=== PATIENT | female | born 2005 | race Hispanic/Latino ===

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

== ENCOUNTER 2024-01-31 18:28 | Observation (INO) | payer SELFPAY ==
[~2024-01-31] VITALS: Ht 152.4 cm; Wt 75.5 kg
--- NOTE | 2024-01-31 18:59 | ERN ---
General Chief Complaint: Abnormal Labs Stated Complaint: ABN LABS Time Seen by MD: 18:32 Time Seen by Midlevel: 18:32 Source: patient History of Present Illness Initial Comments This is a 18-year-old female presenting to the emergency department for evaluation of abnormal labs. Patient was called by her primary care doctor (Dr. Choi) today after she was found to have a hemoglobin of 6.3. She initially presented to her primary care doctors yesterday to discuss her irregular/heavy menstrual flow. She states that throughout her life she has had irregular periods that usually lasted around 5-7 days. She always had a normal amount of vaginal bleeding however, at the started this year she has been having an increase in vaginal bleeding. She has been having periods that are longer induration and heavier in flow. This was the reason she presented to her doctor yesterday. They performed blood work and did not get the results until today. In the emergency department she states she has not had any vaginal bleeding for the last four days. She states she finished her menstrual cycle on January 27, 2024. She specifically denies any dizziness, syncope, palpitations, chest pain, or any other symptoms at this time. Allergies: Coded Allergies: No Known Allergies (Unverified Allergy, Unknown, 07/18/20) Past Medical History Past Medical History: No Pertinent History Past Surgical History: None ROS Dictation CONSTITUTIONAL: Negative except for HPI HEAD/FACE: Negative except for HPI EENT: Negative except for HPI RESPIRATORY: Negative except for HPI GASTROINTESTINAL/ABDOMINAL: Negative except for HPI GENITOURINARY: Negative except for HPI MUSCULOSKELETAL: Negative except for HPI INTEGUMENTARY: Negative except for HPI NEUROLOGICAL/PSYCH: Negative except for HPI HEMATOLOGIC/LYMPHATIC: Negative except for HPI All Systems Negative, Except as noted above. 13 point review of systems assessed and all negative except for above. Physical Exam Physical Exam Dictation Vital Signs reviewed General Appearance: Alert, oriented x 3, no acute distress, well developed, nourished. Head and Face: non-traumatic. Eyes: PERRL, pink conjunctivas, eyelid no trauma, anterior chamber with arcus senilis. Ears: Pinnas intact and no signs of trauma or erythema ear canals clear and no discharge TM no erythema Nose: No discharge, no bleeding. Oropharynx: Mouth normal, tongue pink, pharynx clear,no erythema, tonsils no exudates, no abscesses noted, mucous membrane moist Neck: Supple, non-tender, no thyromegaly, no masses, no JVD, no bruits Breast:Deferred Chest:No tenderness, no crepitus, no paradoxical movement, no retractions Lungs:Clear, well-ventilated, symmetric, no rales, no wheezing, no rhonchi, no stridor, good breath sounds bilaterally Heart: Regular rate, regular rhythm, no murmur, no gallops Vascular: no peripheral edema, Abdomen: Soft, positive bowel sounds, nondistended, no guarding, nontender, no rebound, no masses no hepatomegaly, no splenomegaly, no Mireles's sign, no hernias. Rectal: Deferred Genital: Deferred Neurological: Normal speech, motor function intact, sensory function intact Musculoskeletal: Neck nontender, full range of motion, back nontender, full range of motion, Extremities: nontender, full range of motion Skin: Color pink, dry, no turgor, no rash, no lacerations, no abrasions, no contusions. Lymphatic: Deferred Results Laboratory and Microbiology Lab and Micro Result Laboratory Tests Test 01/31/24 19:04 01/31/24 20:03 White Blood Count 6.3 K/uL (4.8-10.8) Red Blood Count 3.07 MIL/uL (4.00-5.50) L Hemoglobin 6.2 g/dL (12.0-16.0) *L Hematocrit 22.5 % (36-48) L Mean Corpuscular Volume 73.3 fL (80-100) L Mean Corpuscular Hemoglobin 20.2 pg (27.0-33.0) L Mean Corpuscular Hemoglobin Concent 27.6 g/dL (32.0-36.0) L Red Cell Distribution Width 16.9 % (11.0-15.5) H Platelet Count 363 K/uL (130-400) Mean Platelet Volume 9.9 fL (7.5-10.5) Immature Granulocyte % (Auto) 1.4 % (0-1) H Neutrophils (%) (Auto) 57.2 % (40.0-77.0) Lymphocytes (%) (Auto) 25.1 % (21.0-51.0) Monocytes (%) (Auto) 13.3 % (3.0-13.0) H Eosinophils (%) (Auto) 2.1 % (0.0-8.0) Basophils (%) (Auto) 0.9 % (0.0-5.0) Neutrophils # (Auto) 3.6 K/uL (1.8-7.7) Lymphocytes # (Auto) 1.6 K/uL (1.0-4.8) Monocytes # (Auto) 0.8 K/uL (0.1-1.0) Eosinophils # (Auto) 0.13 K/uL (0.00-0.70) Basophils # (Auto) 0.06 K/uL (0.00-0.20) Absolute Immature Granulocyte (auto 0.09 K/uL (0-1) Nucleated Red Blood Cells 0.0 % (0.0-0.19) Red Blood Cell Morphology See comments Prothrombin Time 10.7 SEC (9.6-11.6) Prothromb Time International Ratio 0.99 (0.85-1.15) Activated Partial Thromboplast Time 23.5 SEC (26.3-35.5) L Sodium Level 144 mmol/L (136-145) Potassium Level 4.3 mmol/L (3.5-5.1) Chloride Level 108 mmol/L (101-111) Carbon Dioxide Level 29 mmol/L (21-32) Blood Urea Nitrogen 11 mg/dL (7-18) Creatinine 0.5 mg/dL (0.5-1.0) Glomerular Filtration Rate Calc 138 mL/min (>90) Random Glucose 89 mg/dL (70-105) Total Calcium 9.0 mg/dL (8.5-10.1) Serum Test, Qualitative NEGATIVE (NEGATIVE) Urine Color LIGHT-YELLOW (YELLOW) Urine Appearance CLEAR (CLEAR) Urine pH 6.5 (5.0-8.0) Urine Specific [place] 1.018 (1.001-1.031) Urine Protein NEGATIVE mg/dL (NEGATIVE) Urine Glucose (UA) NEGATIVE mg/dL (NEGATIVE) Urine Ketones 20 mg/dL (NEGATIVE) H Urine Occult Blood NEGATIVE (NEGATIVE) Urine Nitrate NEGATIVE (NEGATIVE) Urine Bilirubin NEGATIVE mg/dL (NEGATIVE) Urine Urobilinogen 0.2 mg/dL (0.2-1.0) Urine Leukocyte Esterase 75 Carlyn/uL (NEGATIVE) H Urine RBC 0-1 /HPF (0-1) Urine WBC 6-10 /HPF (0-1) H Urine Squamous Epithelial Cells RARE /HPF (0-2) Urine Bacteria None /HPF (None Seen) Labs Reviewed?: Yes MDM MDM: Differential diagnosis: Severe anemia, electrolyte abnormality, lab error Rationale: Tests considered and ordered secondary to shared decision making include: Previous outside records reviewed: Old ER visits. Risk of complication and/or morbidity or mortality of patient management: None Medications-Per medication reconciliation Need for hospitalization: Patient does meet criteria for hospitalization. Need for emergency major/minor surgery: No There are no social concerns with this patient. Prescription drug management Prescriptions will include symptomatic care Patient's prior external medical records from other ER visits were reviewed by me as indicated. Prior testing and results from previous visits were reviewed. Prior tests were taken into account with medical decision making and resource utilization, independent historian/historians were used to obtain complete medical history. I independently interpreted the test that were performed, results were reviewed by me and considered findings on radiology if ordered. Medical management and examination interpretation discussions were had by me with other qualified healthcare professionals as indicated for the patient's care. ED Course Orders Procedure Category Date Status Time Cbc With Differential LAB 01/31/24 Complete 18:36 Basic Metabolic Panel LAB 01/31/24 Complete 18:36 Pt And Ptt LAB 01/31/24 Complete 18:36 Type And Screen BBK 01/31/24 In Process 18:36 Testing, LAB 01/31/24 Complete Serum Hcg 18:36 Urinalysis Profile LAB 01/31/24 Complete 18:36 Rbc-No Active Bleeding BBK 01/31/24 In Process 19:49 Culture Urine JUAN MANUEL 01/31/24 In Process 20:15 Vital Signs Date Time Temp Pulse Resp B/P (MAP) Pulse Ox O2 Delivery O2 Flow Rate FiO2 01/31/24 21:18 98.6 83 20 110/66 100 Room Air* 0 01/31/24 20:13 98.8 70 20 100/66 100 Room Air* 0 01/31/24 19:04 98.8 74 20 90/50 100 Room Air* 0 01/31/24 18:32 98.2 97 18 128/56 98 DX & DISP Disposition: Inpatient Decision to Admit Date: Jan 31, 2024 Decision to Admit Time: 21:27 Departure Impression: Primary Impression: Anemia requiring transfusions Condition: Stable Referrals: SELF,REFERRAL (PCP) I have reviewed the case, and I agree with, Diagnosis and Plan I performed the substantive portion of the visit. I have reviewed and personally made and approve the management plan that is documented in the note by myself or the BRIDGER. I acknowledge for responsibility for the patient's management plan. CELE SMITH Jan 31, 2024 18:59
[2024-01-31 19:22] LABS: CREATININE 0.5 mg/dL (0.5-1.0); POTASSIUM 4.3 mmol/L (3.5-5.1)
[2024-01-31 19:26] LABS: BASOPHILS # (AUTO) 0.06 K/uL (0.00-0.20); BASOPHILS % (AUTO) 0.9 % (0.0-5.0); EOSINOPHILS # (AUTO) 0.13 K/uL (0.00-0.70); EOSINOPHILS % (AUTO) 2.1 % (0.0-8.0); HEMATOCRIT 22.5 % (36-48); IMMATURE GRANULOCYTE ABSOLUTE 0.09 K/uL (0-1); LYMPHOCYTES # (AUTO) 1.6 K/uL (1.0-4.8); LYMPHOCYTES % (AUTO) 25.1 % (21.0-51.0); MEAN CORPUSCULAR HEMOGLOBIN 20.2 pg (27.0-33.0); MEAN CORPUSCULAR HGB CONC 27.6 g/dL (32.0-36.0); MEAN CORPUSCULAR VOLUME 73.3 fL (80-100); MONOCYTES # (AUTO) 0.8 K/uL (0.1-1.0); MONOCYTES % (AUTO) 13.3 % (3.0-13.0); NEUTROPHILS # (AUTO) 3.6 K/uL (1.8-7.7); NEUTROPHILS % (AUTO) 57.2 % (40.0-77.0); PLATELET COUNT (AUTO) 363 K/uL (130-400); RED BLOOD CELL COUNT(AUTO) 3.07 MIL/uL (4.00-5.50); RED CELL DISTRIBUTION WIDTH 16.9 % (11.0-15.5); WHITE BLOOD COUNT (AUTO) 6.3 K/uL (4.8-10.8)
[2024-01-31 19:40] LABS: INR 0.99 (0.85-1.15); PROTHROMBIN TIME 10.7 SEC (9.6-11.6)
[2024-01-31 19:42] LABS: PARTIAL THROMBOPLASTIN TIME 23.5 SEC (26.3-35.5)
[2024-01-31 20:14] LABS: ADD UA MICROSCOPIC YES; APPEARANCE,URINE CLEAR (CLEAR); BILIRUBIN,URINE NEGATIVE (NEGATIVE); COLOR,URINE LIGHT-YELLOW (YELLOW); GLUCOSE, URINE (UA) NEGATIVE (NEGATIVE); KETONES,URINE 20 mg/dL (NEGATIVE); LEUKOCYTE ESTERASE ,URINE 75 Leu/uL (NEGATIVE); NITRATE,URINE NEGATIVE (NEGATIVE); OCCULT BLOOD,URINE NEGATIVE (NEGATIVE); PH,URINE 6.5 (5.0-8.0); PROTEIN,URINE NEGATIVE (NEGATIVE); UROBILINOGEN,URINE 0.2 mg/dL (0.2-1.0)
[2024-01-31 20:17] LABS: MUCUS,URINE RARE LPF (None Seen); RBC,URINE 0-1 /HPF (0-1); SQUAMOUS EPITHELIAL CELL,UR RARE /HPF (0-2)
--- NOTE | 2024-01-31 21:10 | NUR ---
BLOOD TRANSFUSION BEDGAN
[2024-01-31] MEDS ORDERED: ondanSETRON 4MG INJ IV PRN (22:00)
[2024-01-31] MEDS ORDERED: acetaMINOPHEN 325 MG TAB PO PRN ×2 (22:00)
--- NOTE | 2024-01-31 22:13 | HP ---
[facility] HISTORY AND PHYSICAL Date of Service: Jan 31, 2024 Time of Service: 21:53 PCP: Jimbo Maradiaga HISTORY OF PRESENT ILLNESS: This is a 18 year old female with no pertinent medical and surgical history who presents to the ED for evaluation of abnormal labs.As per patient she received a call from her PCP office today and that she has a hemoglobin of 6.3.Patient states she has been having a heavy menstrual flow since June which lasted between 10 to 17 days.Her last menstrual period was last January 10 2024 until D and so far this is the heaviest and longest .Patient went to her PCP yesterday and did some labs and she got the result today.Patient states she uses 6 pads everyday during her period.Patient reports she has an upcoming appointment with women health clinic tomorrow. Seen and examined patient in the Ed awake,alert and coherent,pale looking. Patient is currently receiving blood transfusion. Patient denies dizziness,fainting spell,weakness,chest pain,palpitation and shortness of breath. Latest vital signs temperature 98.4, heart rate 79, blood pressure 102/69 saturation 100% room air. Labs: Hemoglobin 6.2, hematocrit 22, platelet count 363. Chemistry normal. Serum test negative. ER called and recommended to admit the patient. REVIEW OF SYSTEMS CONSTITUTIONAL: Denies fevers, chills, or night sweats. No unintentional weight loss reported. NEUROLOGICAL: Denies headache, amaurosis fugax, motor weakness, sensory de ficit, vertigo/spinning sensation, gait abnormalities, or tremors. ENT: No hearing loss, otalgia, otorrhea, rhinitis, rhinorrhea, hoarseness, or sore throat. CARDIOVASCULAR: Denies any exertional angina, dyspnea on exertion, orthopnea, paroxysmal nocturnal dyspnea, palpitations, life-threatening arrhythmias, claudication. PULMONARY: Denies any shortness of breath, cough, phlegm/sputum, hemoptysis, pleuritic chest pain. SLEEP: Denies morning headaches, daytime somnolence or napping. Denies difficulty falling asleep, staying asleep, waking from sleep. Denies knowledge of snoring. GASTROINTESTINAL: Denies any type of dysphagia to either liquids or solids. Denies nausea, vomiting, pyrosis, early satiety, abdominal pain, diarrhea, constipation, or changes in stool consistency or caliber. Denies coffee-ground emesis, hematemesis, hematochezia, or melanotic stools. GENITOURINARY: Denies frequency, urgency, nocturia, hematuria or incontinence (Storage/Irritative symptoms.) Low urinary stream, straining to void, urinary intermittency or hesitancy, splitting of the voiding stream, terminal dribbling. ENDOCRINOLOGIC: Denies polyuria, polydipsia, polyphagia or heat/cold intolerances. HEMATOLOGIC: Denies thrombophilia/previous clots, or coagulopathy/bleeding disorders. ONCOLOGIC: Denies personal history of malignancy. DERMATOLOGIC: Denies rashes or pruritus. PSYCHIATRIC: Denies any suicidal or homicidal ideation. Denies hallucinations. PAST MEDICAL HISTORY: [ Patient denies ] PAST SURGICAL HISTORY: [Patient denies ] PAST SOCIAL HISTORY: [ Patient lives with mother. Patient admits to smoking marijuana occasionally last use was two weeks ago Patient denies cigarette, alcohol and recreational drug use. ] FAMILY HISTORY: [ Noncontributory POA] Coded Allergies: No Known Allergies (Unverified Allergy, Unknown, 07/18/20) PHYSICAL EXAM GENERAL APPEARANCE: The patient is awake, alert, and oriented, in no acute cardiopulmonary distress. NEUROLOGICAL: Cranial nerves II-XII grossly intact. Motor is 5/5 in bilateral upper and lower extremities proximal to distal. No sensory deficits. HEENT: Face is symmetric. Pupils are equal and reactive. Extraocular movements are intact. NECK: Supple. No JVD. No thyromegaly. No submental, submandibular, pre- /postauricular, occipital or supraclavicular lymphadenopathy. CHEST: Normal chest expansion. No Telemetry. LUNGS: Absence of any rales, rhonchi or any wheezing. CARDIOVASCULAR: Regular. S1 and S2 normal. No appreciable rubs, murmurs or gallops. ABDOMEN: Soft, nontender, and nondistended. There is no rebound, voluntary guarding, or rigidity. : Deferred. No Major. EXTREMITIES: Non-edematous and not cyanotic. No clubbing. Good capillary refill. SKIN: No skin breakdown. Vital Sign (Last 24 Hours) 01/31/24 21:30 Temp 98.4 Pulse 79 Resp 20 B/P (MAP) 102/69 Pulse Ox 100 O2 Delivery Room Air* O2 Flow Rate 0 FiO2 21 LABS: Laboratory: Test 01/31/24 20:03 01/31/24 19:04 Range/Units Urine Color LIGHT-YELLOW YELLOW Urine Appearance CLEAR CLEAR Urine pH 6.5 5.0-8.0 Urine Specific [place] 1.018 1.001-1.031 Urine Protein NEGATIVE NEGATIVE mg/dL Urine Glucose (UA) NEGATIVE NEGATIVE mg/dL Urine Ketones 20 H NEGATIVE mg/dL Urine Occult Blood NEGATIVE NEGATIVE Urine Nitrate NEGATIVE NEGATIVE Urine Bilirubin NEGATIVE NEGATIVE mg/dL Urine Urobilinogen 0.2 0.2-1.0 mg/dL Urine Leukocyte Esterase 75 H NEGATIVE Carlyn/uL Urine RBC 0-1 0-1 /HPF Urine WBC 6-10 H 0-1 /HPF Urine Squamous Epithelial Cells RARE 0-2 /HPF Urine Bacteria None None Seen /HPF White Blood Count 6.3 4.8-10.8 K/uL Red Blood Count 3.07 L 4.00-5.50 MIL/uL Hemoglobin 6.2 *L 12.0-16.0 g/dL Hematocrit 22.5 L 36-48 % Mean Corpuscular Volume 73.3 L 80-100 fL Mean Corpuscular Hemoglobin 20.2 L 27.0-33.0 pg Mean Corpuscular Hemoglobin Concent 27.6 L 32.0-36.0 g/dL Red Cell Distribution Width 16.9 H 11.0-15.5 % Platelet Count 363 130-400 K/uL Mean Platelet Volume 9.9 7.5-10.5 fL Immature Granulocyte % (Auto) 1.4 H 0-1 % Neutrophils (%) (Auto) 57.2 40.0-77.0 % Lymphocytes (%) (Auto) 25.1 21.0-51.0 % Monocytes (%) (Auto) 13.3 H 3.0-13.0 % Eosinophils (%) (Auto) 2.1 0.0-8.0 % Basophils (%) (Auto) 0.9 0.0-5.0 % Neutrophils # (Auto) 3.6 1.8-7.7 K/uL Lymphocytes # (Auto) 1.6 1.0-4.8 K/uL Monocytes # (Auto) 0.8 0.1-1.0 K/uL Eosinophils # (Auto) 0.13 0.00-0.70 K/uL Basophils # (Auto) 0.06 0.00-0.20 K/uL Absolute Immature Granulocyte (auto 0.09 0-1 K/uL Nucleated Red Blood Cells 0.0 0.0-0.19 % Red Blood Cell Morphology See comments Prothrombin Time 10.7 9.6-11.6 SEC Prothromb Time International Ratio 0.99 0.85-1.15 Activated Partial Thromboplast Time 23.5 L 26.3-35.5 SEC Sodium Level 144 136-145 mmol/L Potassium Level 4.3 3.5-5.1 mmol/L Chloride Level 108 101-111 mmol/L Carbon Dioxide Level 29 21-32 mmol/L Blood Urea Nitrogen 11 7-18 mg/dL Creatinine 0.5 0.5-1.0 mg/dL Glomerular Filtration Rate Calc 138 >90 mL/min Random Glucose 89 70-105 mg/dL Total Calcium 9.0 8.5-10.1 mg/dL Serum Test, Qualitative NEGATIVE NEGATIVE DIAGNOSTICS / RADIOLOGY: [ ] ASSESSMENT: Severe anemia POA Menorrhagia POA Positive marijuana use POA Obesity POA PLAN: We will admit patient in medical surgical floor We will request H&H 1 hour post transfusion We will start patient on regular diet We will start on famotidine 20 mg p.o. b.i.d. for GI prophylaxis We will add p.r.n. medication for fever pain nausea and vomiting We will replace electrolytes as needed per protocol We will check labs in a.m. Counseled on marijuana use cessation Patient has an upcoming appointment with OBGYN Further recommendations to follow depending upon hospitalization course Case discussed with the attending MD and came up with the above treatment and plan of care ADVANCED CARE PLANNING 1. Which of the following were discussed? Hospice Care - No Therapeutic options - Yes Advance Directives - No Other discussions - 2. Discussed with who? Patient 3. Voluntary nature of this service was explained to the patient? Yes 4. Amount of time spent - __18 5. Reviewed by Physician? (if this service was performed by NPP) Yes Patient seen and examined by me. Agree with note by REMOTELY PILOTED VEHICLE CONTROLLER SEE ADDITIONAL ORDERS PER CHART DISCUSSED WITH NURSING STAFF JUAN MANUEL [employer]ANGER Jan 31, 2024 22:13
[2024-02-01] VITALS: BP 119/69; PULSE 83; RESP 16; TEMP 98.2; O2SAT 99
[2024-02-01 00:26] VITALS: O2SAT 100
[2024-02-01 04:00] VITALS: BP 105/68; PULSE 72; RESP 18; TEMP 98.3
[2024-02-01 04:30] LABS: BASOPHILS # (AUTO) 0.04 K/uL (0.00-0.20); BASOPHILS % (AUTO) 0.7 % (0.0-5.0); EOSINOPHILS # (AUTO) 0.18 K/uL (0.00-0.70); HEMATOCRIT 24.3 % (36-48); IMMATURE GRANULOCYTE ABSOLUTE 0.01 K/uL (0-1); LYMPHOCYTES # (AUTO) 2.7 K/uL (1.0-4.8); LYMPHOCYTES % (AUTO) 46.2 % (21.0-51.0); MEAN CORPUSCULAR HEMOGLOBIN 22.4 pg (27.0-33.0); MEAN CORPUSCULAR VOLUME 74.5 fL (80-100); MONOCYTES # (AUTO) 0.7 K/uL (0.1-1.0); MONOCYTES % (AUTO) 11.3 % (3.0-13.0); NEUTROPHILS # (AUTO) 2.3 K/uL (1.8-7.7); NEUTROPHILS % (AUTO) 38.6 % (40.0-77.0); PLATELET COUNT (AUTO) 337 K/uL (130-400); RED BLOOD CELL COUNT(AUTO) 3.26 MIL/uL (4.00-5.50); RED CELL DISTRIBUTION WIDTH 17.9 % (11.0-15.5); WHITE BLOOD COUNT (AUTO) 5.9 K/uL (4.8-10.8)
[2024-02-01 08:00] VITALS: BP 104/67; PULSE 86; RESP 16; TEMP 98; O2SAT 99
--- NOTE | 2024-02-01 09:04 | PN ---
[facility] PROGRESS NOTE Date of Service: Feb 01, 2024 Time of Service: 08:57 SUBJECTIVE: [ ] This is a 18 year old female with no pertinent medical and surgical history who presents to the ED for evaluation of abnormal labs.As per patient she received a call from her PCP office today and that she has a hemoglobin of 6.3.Patient states she has been having a heavy menstrual flow since June which lasted between 10 to 17 days.Her last menstrual period was last January 10 2024 until January and so far this is the heaviest and longest .Patient went to her PCP yesterday and did some labs and she got the result today.Patient states she uses 6 pads everyday during her period.Patient reports she has an upcoming appointment with women health clinic tomorrow. REVIEW OF SYSTEMS CONSTITUTIONAL: Denies fevers, chills, or night sweats. No unintentional weight loss reported. NEUROLOGICAL: Denies headache, amaurosis fugax, motor weakness, sensory deficit, vertigo/spinning sensation, gait abnormalities, or tremors. ENT: No hearing loss, otalgia, otorrhea, rhinitis, rhinorrhea, hoarseness, or sore throat. CARDIOVASCULAR: Denies any exertional angina, dyspnea on exertion, orthopnea, paroxysmal nocturnal dyspnea, palpitations, life-threatening arrhythmias, claudication. PULMONARY: Denies any shortness of breath, cough, phlegm/sputum, hemoptysis, pleuritic chest pain. SLEEP: Denies morning headaches, daytime somnolence or napping. Denies difficulty falling asleep, staying asleep, waking from sleep. Denies knowledge of snoring. GASTROINTESTINAL: Denies any type of dysphagia to either liquids or solids. Denies nausea, vomiting, pyrosis, early satiety, abdominal pain, diarrhea, constipation, or changes in stool consistency or caliber. Denies coffee-ground emesis, hematemesis, hematochezia, or melanotic stools. GENITOURINARY: Denies frequency, urgency, nocturia, hematuria or incontinence (Storage/Irritative symptoms.) Low urinary stream, straining to void, urinary intermittency or hesitancy, splitting of the voiding stream, terminal dribbling. ENDOCRINOLOGIC: Denies polyuria, polydipsia, polyphagia or heat/cold intolerances. HEMATOLOGIC: Denies thrombophilia/previous clots, or coagulopathy/bleeding disorders. ONCOLOGIC: Denies personal history of malignancy. DERMATOLOGIC: Denies rashes or pruritus. PSYCHIATRIC: Denies any suicidal or homicidal ideation. Denies hallucinations. PHYSICAL EXAM GENERAL APPEARANCE: The patient is awake, alert, and oriented, in no acute cardiopulmonary distress. NEUROLOGICAL: Cranial nerves II-XII grossly intact. Motor is 5/5 in bilateral upper and lower extremities proximal to distal. No sensory deficits. HEENT: Face is symmetric. Pupils are equal and reactive. Extraocular movements are intact. NECK: Supple. No JVD. No thyromegaly. No submental, submandibular, pre- /postauricular, occipital or supraclavicular lymphadenopathy. CHEST: Normal chest expansion. No Telemetry. LUNGS: Absence of any rales, rhonchi or any wheezing. CARDIOVASCULAR: Regular. S1 and S2 normal. No appreciable rubs, murmurs or gallops. ABDOMEN: Soft, nontender, and nondistended. There is no rebound, voluntary guarding, or rigidity. : Deferred. No Major. EXTREMITIES: Non-edematous and not cyanotic. No clubbing. Good capillary refill. SKIN: No skin breakdown. Vital Signs (last 8hr) Date Time Temp Pulse Resp B/P (MAP) Pulse Ox O2 Delivery O2 Flow Rate FiO2 02/01/24 08:00 98.1 86 16 104/67 99 Room Air 21 02/01/24 04:00 98.2 72 18 105/68 96 Room Air LABS: Laboratory: Test 02/01/24 04:07 01/31/24 20:03 01/31/24 19:04 Range/Units White Blood Count 5.9 4.8-10.8 K/uL Red Blood Count 3.26 L 4.00-5.50 MIL/uL Hemoglobin 7.3 L 12.0-16.0 g/dL Hematocrit 24.3 L 36-48 % Mean Corpuscular Volume 74.5 L 80-100 fL Mean Corpuscular Hemoglobin 22.4 L 27.0-33.0 pg Mean Corpuscular Hemoglobin Concent 30.0 L 32.0-36.0 g/dL Red Cell Distribution Width 17.9 H 11.0-15.5 % Platelet Count 337 130-400 K/uL Mean Platelet Volume 10.2 7.5-10.5 fL Immature Granulocyte % (Auto) 0.2 0-1 % Neutrophils (%) (Auto) 38.6 L 40.0-77.0 % Lymphocytes (%) (Auto) 46.2 21.0-51.0 % Monocytes (%) (Auto) 11.3 3.0-13.0 % Eosinophils (%) (Auto) 3.0 0.0-8.0 % Basophils (%) (Auto) 0.7 0.0-5.0 % Neutrophils # (Auto) 2.3 1.8-7.7 K/uL Lymphocytes # (Auto) 2.7 1.0-4.8 K/uL Monocytes # (Auto) 0.7 0.1-1.0 K/uL Eosinophils # (Auto) 0.18 0.00-0.70 K/uL Basophils # (Auto) 0.04 0.00-0.20 K/uL Absolute Immature Granulocyte (auto 0.01 0-1 K/uL Nucleated Red Blood Cells 0.0 0.0-0.19 % Urine Color LIGHT-YELLOW YELLOW Urine Appearance CLEAR CLEAR Urine pH 6.5 5.0-8.0 Urine Specific [place] 1.018 1.001-1.031 Urine Protein NEGATIVE NEGATIVE mg/dL Urine Glucose (UA) NEGATIVE NEGATIVE mg/dL Urine Ketones 20 H NEGATIVE mg/dL Urine Occult Blood NEGATIVE NEGATIVE Urine Nitrate NEGATIVE NEGATIVE Urine Bilirubin NEGATIVE NEGATIVE mg/dL Urine Urobilinogen 0.2 0.2-1.0 mg/dL Urine Leukocyte Esterase 75 H NEGATIVE Carlyn/uL Urine RBC 0-1 0-1 /HPF Urine WBC 6-10 H 0-1 /HPF Urine Squamous Epithelial Cells RARE 0-2 /HPF Urine Bacteria None None Seen /HPF Red Blood Cell Morphology See comments Prothrombin Time 10.7 9.6-11.6 SEC Prothromb Time International Ratio 0.99 0.85-1.15 Activated Partial Thromboplast Time 23.5 L 26.3-35.5 SEC Sodium Level 144 136-145 mmol/L Potassium Level 4.3 3.5-5.1 mmol/L Chloride Level 108 101-111 mmol/L Carbon Dioxide Level 29 21-32 mmol/L Blood Urea Nitrogen 11 7-18 mg/dL Creatinine 0.5 0.5-1.0 mg/dL Glomerular Filtration Rate Calc 138 >90 mL/min Random Glucose 89 70-105 mg/dL Total Calcium 9.0 8.5-10.1 mg/dL Serum Test, Qualitative NEGATIVE NEGATIVE Current Medications Medications (Trade) Dose Ordered Sig/Gamaliel Route PRN Reason Start Time Stop Time Status Last Admin Dose Admin Acetaminophen (TYLenol 325MG TAB) 650 mg Q4H PRN PO MILD PAIN (1-3) 01/31/24 22:00 03/01/24 21:59 Acetaminophen (TYLenol 325MG TAB) 650 mg Q6H PRN PO TEMPERATURE GREATER THAN 101.5 01/31/24 22:00 03/01/24 21:59 Famotidine (Pepcid 20mg Vial) 20 mg BID IV 02/01/24 09:00 03/02/24 08:59 Ondansetron HCl (zoFRAN 4MG INJ) 4 mg Q6H PRN IV NAUSEA/VOMITING 01/31/24 22:00 03/01/24 21:59 DIAGNOSTICS / RADIOLOGY: [ ] ASSESSMENT: Severe anemia POA Menorrhagia POA Positive marijuana use POA Obesity POA PLAN: remain in medical surgical floor s/p blood transfusion : one unit: post level 7.3 HCT: 24.3 continue H/H q6 hr transfuse to keep HGB above 7.0 \ Test: US Transvaginal today cont with supportive measures: famotidine 20 mg p.o. b.i.d. for GI prophylaxis cont with p.r.n. medication for fever pain nausea and vomiting replace electrolytes as needed per protocol to keep potassium above 4.0 magnesium 2.0 Counseled on marijuana use cessation Patient has an upcoming appointment with OBGYN Further recommendations to follow depending upon hospitalization course Case discussed with the attending MD and came up with the above treatment and plan of care ATTESTATION BY PHYSICIAN I have seen and examined the patient. I reviewed the documentation, medical decision making, and treatment plan as noted by the mid-level provider above. I agree with the findings and plan of care. ELOISE CHASE MD, ELIZABETH NP Feb 01, 2024 09:04
[2024-02-01] MEDS: FAMOTIDINE 20MG VIAL IV SCH (09:08)
[2024-02-01] MEDS ORDERED: FERR324T23 PO (10:04)
[2024-02-01] MEDS ORDERED: DOCU-116 PO (10:04)
--- NOTE | 2024-02-01 10:10 | DS ---
Discharge Summary Hospital Course Summary: This is a 18 year old female with no pertinent medical and surgical history who presents to the ED for evaluation of abnormal labs.As per patient she received a call from her PCP office today and that she has a hemoglobin of 6.3.Patient states she has been having a heavy menstrual flow since June which lasted between 10 to 17 days.Her last menstrual period was last January 10 2024 until January and so far this is the heaviest and longest .Patient went to her PCP yesterday and did some labs and she got the result today. During the course of stay patient received 1 unit of packed RBCs overnight hemoglobin 7.3 patient reports no active bleeding bleeding has subsided. Macario moffett had a transvaginal ultrasound. Patient had an appointment today with professional nursing tutor however she was hospitalized as per mother she will reach out on Saturday to reschedule. Patient will be discharged on iron supplement. All questions were addressed patient is clinically stable for discharge. Assessment/Plan: Discharged dx's; Severe anemia secondary to blood loss requiring blood transfusion: (Menorrhagia ) POA Menorrhagia POA Positive marijuana use POA Obesity POA PLAN: ADMISSION DATE: 01/31/24 DISCHARGE DATE: 01/31/24 DISPOSITION: home CONDITION: stable ROOFING SUPERVISOR(S): none FOLLOW UP APPOINTMENT(S): We will follow-up with PCP 2-3 days, professional nursing tutor we will follow-up on Saturday to reschedule appointment. PROCEDURES: none IMAGING (S) report attached to summary : Transvaginal ultrasound MICROBIOLOGY: report attached to summary; none ACTIVITY: ab sandra HOME MEDICATIONS: none profile NEW MEDICATIONS ferrous sulfate 324 mg po daily, colace 100 mg po daily TEACHING: To reschedule an appointment with professional nursing tutor. Emergency instructions: The patient was instructed to present to the nearest Emergency Department or call 911 should their symptoms return or worsen. New Medications: Docusate Sodium (Colace) 100 Mg Capsule 100 MG PO DAILY for 30 Days, #30 CAP Ferrous Gluconate (Ferrous Gluconate) 324 Mg (37.5 Mg Iron) Tablet 1 TAB PO DAILY for iron for 30 Days, #30 TAB 0 Refills Time spent arranging discharge: 31-60 minutes ATTESTATION BY PHYSICIAN I have seen and examined the patient. I reviewed the documentation, medical decision making, and treatment plan as noted by the mid-level provider above. I agree with the findings and plan of care. ELOISE CHASE MD, ELIZABETH NP Feb 01, 2024 10:10
[2024-02-01 12:00] VITALS: BP 103/71; PULSE 85; RESP 18; TEMP 99.6
--- NOTE | 2024-02-01 12:00 | HMCIMG ---
TRANSVAGINAL ULTRASOUND ULTRASOUND ABD VASCULAR LIMITED INDICATION: Pelvic pain COMPARISONS: None TECHNIQUE: Transvaginal real-time sonographic images were acquired earlier, and subsequently made available for review. FINDINGS: Transvaginal imaging was performed to better delineate pelvic anatomy. The uterus measures 8.8 x 5.2 x 3.2 cm. The uterus is normal in echotexture and contour. The endometrial thickness measures 10.0 mm. The right ovary is obscured by overlying bowel gas. The left ovary measures 2.7 x 2.0 x 2.4 cm. The left ovary is normal in size, shape and echogenicity. No left adnexal masses demonstrated. Color Doppler flow is normal throughout the left ovary. Spectral Doppler analysis demonstrates a normal waveform pattern. Trace physiologic amount of free fluid demonstrated within the pelvic cul-de-sac. IMPRESSION: Limitations as reported. No acute pelvic abnormality noted.
--- NOTE | 2024-02-01 14:00 | NUR ---
PATIENT IS ALERT, ORIENTED IN PERSON, TIME AND PLACE. NO SIGNS OF RESPIRATORY DISTRESS NOTED. PATIENT READY TO BE DISCHARGED. DISCUSSED PLAN OF CARE, PAIN MANAGEMENT, FOLLOW UP APPOINTMENTS. GAVE HER THE RESULTS OF THE ULTRASOUNDS FOR HER TO GIVE PCP ON SATURDAY. PATIENT VERBALIZED UNDERSTANDING. REMOVED IV ACCESS. PATIENT WAS WHEELED DOWNSTAIRS AND LEFT I PRIVATE CAR WITH FAMILY MEMBERS.
== END 2024-02-01 14:00 | disposition home or self-care (01) ==
LOC: EDH 18:28 → EDHIP 18:29 → INTOOBSV 18:29 → 3BH 23:47
PROVIDERS: ADMIT Internal Medicine; ATTEND Internal Medicine
DX: N92.0 Excessive and frequent menstruation with regular cycle (principal); D64.9 Anemia, unspecified; F12.90 Cannabis use, unspecified, uncomplicated; E66.9 Obesity, unspecified; Z79.899 Other long term (current) drug therapy
CPT/HCPCS: 99285; 36430; 80048; 84703; 85025 ×2; 85610; 85730; 86850; 86900; 86901; 86923; 87086; 81001; 36415 ×2; 96374; 76830; 85018; 85014; P9016; G0378; J3490; 96365

== ENCOUNTER 2024-06-12 12:20 | Emergency (ER) | payer SELFPAY ==
[~2024-06-12] VITALS: Ht 152.4 cm; Wt 76.2 kg
[~2024-06-12 12:20] MED LIST: DOCU-116 PO; FERR324T23 PO
[2024-06-12 12:47] LABS: BASOPHILS # (AUTO) 0.04 K/uL (0.00-0.20); BASOPHILS % (AUTO) 0.5 % (0.0-5.0); EOSINOPHILS # (AUTO) 0.02 K/uL (0.00-0.70); EOSINOPHILS % (AUTO) 0.2 % (0.0-8.0); HEMATOCRIT 32.2 % (36-48); IMMATURE GRANULOCYTE ABSOLUTE 0.03 K/uL (0-1); LYMPHOCYTES # (AUTO) 1.7 K/uL (1.0-4.8); LYMPHOCYTES % (AUTO) 19.8 % (21.0-51.0); MEAN CORPUSCULAR HEMOGLOBIN 31.6 pg (27.0-33.0); MEAN CORPUSCULAR HGB CONC 32.3 g/dL (32.0-36.0); MEAN CORPUSCULAR VOLUME 97.9 fL (80-100); MONOCYTES # (AUTO) 0.5 K/uL (0.1-1.0); MONOCYTES % (AUTO) 6.3 % (3.0-13.0); NEUTROPHILS # (AUTO) 6.1 K/uL (1.8-7.7); NEUTROPHILS % (AUTO) 72.8 % (40.0-77.0); PLATELET COUNT (AUTO) 309 K/uL (130-400); RED BLOOD CELL COUNT(AUTO) 3.29 MIL/uL (4.00-5.50); RED CELL DISTRIBUTION WIDTH 12.9 % (11.0-15.5); WHITE BLOOD COUNT (AUTO) 8.4 K/uL (4.8-10.8)
[2024-06-12 12:57] LABS: CREATININE 0.7 mg/dL (0.5-1.0); POTASSIUM 4.2 mmol/L (3.5-5.1)
[2024-06-12 13:15] VITALS: BP 121/85; PULSE 89; RESP 20; TEMP 98.6; O2SAT 98
[2024-06-12] MEDS ORDERED: DOCU-116 PO (13:53)
[2024-06-12] MEDS ORDERED: FERR324T4 PO (13:53)
--- NOTE | 2024-06-12 13:53 | ERN ---
General Chief Complaint: Vaginal Problems/Bleeding Stated Complaint: HEAVY BLEEDING WITH CLOTS Time Seen by MD: 12:25 Source: family History of Present Illness Initial Comments Patient is a an 18-year-old female coming in to be evaluated for heavy mens truation. Per mother patient has been having this heavy menstruation for some time. This morning mother was concerned because it was has been clots seen. Patient was also complaining of painful menses. Allergies: Coded Allergies: No Known Allergies (Unverified Allergy, Unknown, 07/18/20) Home Meds Active Scripts Ferrous Gluconate (Ferrous Gluconate) 324 Mg (37.5 Mg Iron) Tablet, 1 TAB PO DAILY for iron for 30 Days, #30 TAB 0 Refills Prov:GARRISON AGUIRRE NP 02/01/24 Docusate Sodium (Colace) 100 Mg Capsule, 100 MG PO DAILY for 30 Days, #30 CAP Prov:GARRISON AGUIRRE NP 02/01/24 Past Medical History Past Medical History: Anemia Past Surgical History: None Female( History) LMP: Jun 06, 2024 ROS Dictation CONSTITUTIONAL: No chills, no fever, no weakness, no diaphoresis, no malaise. HEAD/FACE: No signs of trauma. EENT: No eye pain, no blurred vision, no tearing, no double vision, no ear pain, no ear discharge, no nose pain, no nasal congestion, no throat pain, no throat swelling, no mouth pain. RESPIRATORY: No cough, no orthopnea, no SOB, no stridor, no wheezing. CARDIOVASCULAR: No chest pain, no edema, no palpitations, no syncope. GASTROINTESTINAL/ABDOMINAL: No abdominal pain, no constipation, no diarrhea, no nausea, no vomiting. GENITOURINARY: No abnormal discharge, no dysuria, no frequent urination, no hematuria. No complaints of pain in the genitals. MUSCULOSKELETAL: No back pain, no gout, no joint pain, no joint swelling, no muscle pain, no muscle stiffness, no neck pain. INTEGUMENTARY: No change in color, no change in hair/nails, no dryness, no lesion, no lumps, no rash. NEUROLOGICAL/PSYCH: No anxiety, not depressed, no emotional problem, no headache, no numbness, no pre-existing deficit, no history of seizures, no tremors, no weakness. HEMATOLOGIC/LYMPHATIC: Not anemic, no history of blood clots, no apparent bleeding, no bruising, glands not swollen. All Systems Negative, Except as Noted. Physical Exam Physical Exam Dictation VITAL SIGNS: Reviewed. GENERAL APPEARANCE: Alert, oriented x3, no acute distress, obese. HEAD AND FACE: Non-traumatic. EYES: PERRL, pink conjunctivas, eyelid no trauma, anterior chamber clear. EARS: Pinnas intact and no signs of trauma or erythema. Ear canals clear and no discharge. TMs no erythema. NOSE: No discharge, no bleeding. OROPHARYNX: Mouth normal, teeth no caries, tongue pink. Pharynx clear, no erythema. Tonsils no exudates, no abscesses noted. Mucous membrane moist. NECK: Supple, non-tender, no thyromegaly, no masses, no JVD, no bruits. BREAST: Deferred. CHEST: No tenderness, no crepitus, no paradoxical movement, no retractions. LUNGS: Clear, well-ventilated, symmetric, no rales, no wheezing, no rhonchi, no stridor, good breath sounds bilaterally. HEART: Regular rate, regular rhythm, no murmur, no gallops. VASCULAR: No peripheral edema. ABDOMEN: Soft, positive bowel sounds, nondistended, no guarding, nontender, no rebound, no masses no hepatomegaly, no splenomegaly, no Mireles's sign, no hernias. RECTAL: Deferred. GENITAL: Deferred. NEUROLOGICAL: Normal speech, gross motor function intact, gross sensory function intact. MUSCULOSKELETAL: Neck nontender, full range of motion, back nontender, full range of motion. EXTREMITIES: Nontender, full range of motion. SKIN: Color pink, dry, no turgor, no rash, no lacerations, no abrasions, no contusions. LYMPHATICS: Deferred. Results Laboratory and Microbiology Lab and Micro Result Laboratory Tests Test 06/12/24 12:37 White Blood Count 8.4 K/uL (4.8-10.8) Red Blood Count 3.29 MIL/uL (4.00-5.50) L Hemoglobin 10.4 g/dL (12.0-16.0) L Hematocrit 32.2 % (36-48) L Mean Corpuscular Volume 97.9 fL (80-100) Mean Corpuscular Hemoglobin 31.6 pg (27.0-33.0) Mean Corpuscular Hemoglobin Concent 32.3 g/dL (32.0-36.0) Red Cell Distribution Width 12.9 % (11.0-15.5) Platelet Count 309 K/uL (130-400) Mean Platelet Volume 9.2 fL (7.5-10.5) Immature Granulocyte % (Auto) 0.4 % (0-1) Neutrophils (%) (Auto) 72.8 % (40.0-77.0) Lymphocytes (%) (Auto) 19.8 % (21.0-51.0) L Monocytes (%) (Auto) 6.3 % (3.0-13.0) Eosinophils (%) (Auto) 0.2 % (0.0-8.0) Basophils (%) (Auto) 0.5 % (0.0-5.0) Neutrophils # (Auto) 6.1 K/uL (1.8-7.7) Lymphocytes # (Auto) 1.7 K/uL (1.0-4.8) Monocytes # (Auto) 0.5 K/uL (0.1-1.0) Eosinophils # (Auto) 0.02 K/uL (0.00-0.70) Basophils # (Auto) 0.04 K/uL (0.00-0.20) Absolute Immature Granulocyte (auto 0.03 K/uL (0-1) Nucleated Red Blood Cells 0.0 % (0.0-0.19) Urine HCG, Qualitative NEGATIVE (NEGATIVE) Sodium Level 139 mmol/L (136-145) Potassium Level 4.2 mmol/L (3.5-5.1) Chloride Level 104 mmol/L (101-111) Carbon Dioxide Level 27 mmol/L (21-32) Blood Urea Nitrogen 10 mg/dL (7-18) Creatinine 0.7 mg/dL (0.5-1.0) Glomerular Filtration Rate Calc 128 mL/min (>90) Random Glucose 87 mg/dL (70-105) Total Calcium 8.7 mg/dL (8.5-10.1) Labs Reviewed?: Yes MDM MDM: Differential diagnosis: Dysfunctional uterine bleed, heavy menstruations, Rationale: Tests considered and ordered secondary to shared decision making include: Previous outside records reviewed: Old ER visits. Risk of complication and/or morbidity or mortality of patient management: None Patient is a 18-year-old female coming in to be evaluated for has been menstruations. Mother was concerned because patient has frequently presented with these symptoms but requires blood transfusion. Today hemoglobin was low but not to the point of transfusion. I did advised her appropriate follow up with PCP and/or application support manager in 1-2 days. Patient will be discharged in stable condition with a diagnosis of heavy menstruation anemia. ED Course Orders Procedure Category Date Status Time Cbc With Differential LAB 06/12/24 Complete 12:30 Basic Metabolic Panel LAB 06/12/24 Complete 12:30 ,Urine Test LAB 06/12/24 Complete 12:30 Vital Signs Date Time Temp Pulse Resp B/P (MAP) Pulse Ox O2 Delivery O2 Flow Rate FiO2 06/12/24 13:15 98.6 89 20 121/85 98 Room Air* 0 21 06/12/24 12:29 98.6 103 20 123/87 98 Room Air DX & DISP Disposition: Discharge Departure Impression: Primary Impression: Dysfunctional uterine bleeding Additional Impression: Anemia Condition: Stable Scripts Docusate Sodium (Colace) 100 Mg Capsule 1 CAP PO BID for 10 Days, #20 CAP 0 Refills Prov: RIRI GODOY MD 06/12/24 Ferrous Sulfate (Ferrous Sulfate) 324 Mg (65 Mg Iron) Tablet.dr 1 TAB PO DAILY for 30 Days, #30 TAB 0 Refills Prov: RIRI GODOY MD 06/12/24 Additional Instructions: FOLLOW-UP WITH PRIMARY CARE PROVIDER IN 1 TO 2 DAYS. TAKE MEDICATIONS DIRECTED HERE IN THE EMERGENCY ROOM. OKAY TO CONTINUE HOME MEDICATIONS UNLESS OTHERWISE DISCUSSED DURING YOUR VISIT IN THE EMERGENCY ROOM TODAY. RETURN TO YOUR NEAREST EMERGENCY ROOM IF SYMPTOMS WORSEN OR IF THERE IS NO IMPROVEMENT. CALL 911 IF YOU NEED IMMEDIATE ASSISTANCE. TAKE TYLENOL [id number] NEEDED AND IF NO CONTRAINDICATIONS ARE PRESENT. INCREASE ORAL HYDRATION. A WOUND CULTURE OR URINE CULTURE WAS ORDERED HERE IN THE EMERGENCY ROOM DEPARTMENT PLEASE FOLLOW-UP WITH PRIMARY CARE PROVIDER AND ADVISE THEM TO GET REPEAT PORTS FROM OUR FACILITY. IF YOU HAD ANY GIORGIO WRAP/SPLINTS THAT WERE APPLIED HERE, PLEASE DO NOT REMOVE THEM UNTIL YOU SEE YOUR PRIMARY CARE OR SPECIALTY. Referrals: Referrals: ALONZO ABEL (PCP) RENE BUCHANAN MD Time of Disposition: 13:52 RIRI GODOY MD Jun 12, 2024 13:53
[2024-06-12] MEDS: acetaMINOPHEN 500 MG TABLET PO ONE ×2 (14:01)
== END 2024-06-12 14:07 | disposition home or self-care (01) ==
LOC: EDH 12:20
DX: D64.9 Anemia, unspecified (principal); N93.8 Other specified abnormal uterine and vaginal bleeding; Z79.899 Other long term (current) drug therapy
CPT/HCPCS: 36415; 80048; 81025; 85025; 99283